=== PATIENT | male | born 2000 | race Caucasian/White ===

== ENCOUNTER → 2021-10-23 | Emergency (ER) | payer SELFPAY | LOC: ER 02:25 | DX: B34.9 Viral infection, unspecified (principal); F17.290 Nicotine dependence, other tobacco product, uncomplicated | CPT/HCPCS: 99281 ==

== ENCOUNTER 2021-12-14 07:57 | Emergency (ER) | payer SELFPAY ==
[~2021-12-14] VITALS: Ht 175.3 cm; Wt 68.0 kg
[2021-12-14 08:02] VITALS: BP 136/93
[2021-12-14 09:12] LABS: BASOPHILS % 0.8 % (0.0-2.0); EOSINOPHILS % 2.3 % (0.0-5.0); HEMATOCRIT. 49.1 % (42.0-52.0); HEMOGLOBIN. 17.3 g/dL (14.0-18.0); LYMPHOCYTES % 28.1 % (20.0-50.0); MEAN CORPUSCULAR HEMOGLOBIN 30.3 pg (28.0-32.0); MEAN CORPUSCULAR VOLUME 85.9 fL (80.0-94.0); MEAN PLATELET VOLUME 6.4 fl (7.4-10.4); MONOCYTES % 5.3 % (2.0-8.0); NEUTROPHILS % 63.5 % (40.0-76.0); PLATELET 443 x1000/uL (130-400); RED BLOOD CELL COUNT 5.71 mill/uL (4.7-6.1)
[2021-12-14 09:16] LABS: CHLORIDE 101 mEq/L (98-107)
[2021-12-14 09:34] LABS: *AMPHETAMINES SCREEN URINE PRESUMTIVE POSITIVE (NEGATIVE); *BARBITURATES SCREEN URINE NEGATIVE (NEGATIVE); *BENZODIAZEPINES SCREEN URINE NEGATIVE (NEGATIVE); *COCAINE SCREEN URINE NEGATIVE (NEGATIVE); CANNABINOID URINE SCREEN NEGATIVE (NEGATIVE); METHADONE URINE SCREEN NEGATIVE (NEGATIVE); OPIATES URINE SCREEN NEGATIVE (NEGATIVE); PHENCYCLIDINE URINE SCREEN NEGATIVE (NEGATIVE)
[2021-12-14 09:36] LABS: ETHANOL BLOOD < 10 mg/dL
== END 2021-12-14 10:45 | disposition home or self-care (01) ==
LOC: ER 09:29
DX: M79.18 Myalgia, other site (principal); R42 Dizziness and giddiness; F15.10 Other stimulant abuse, uncomplicated
CPT/HCPCS: 36415; 71045; 80053; 80305; 80320; 85025; 93005; 99285; G0480